=== PATIENT | female | born 1990 | race Caucasian/White ===

== ENCOUNTER 2025-02-25 22:48 | Emergency (ER) | payer OTHER ==
[~2025-02-25] VITALS: Ht 160 cm; Wt 67.0 kg
[2025-02-25 23:16] VITALS: O2SAT 96
[2025-02-26] MEDS: DIPHENHYDRAMINE 25MG CAPSULE PO ONE (01:38)
[2025-02-26] MEDS: KETOROLAC 15MG/ML VIAL IM ONE (01:38)
[2025-02-26] MEDS: METOCLOPRAMIDE HCL 10MG TABLET PO ONE (01:38)
[2025-02-26] MEDS ORDERED: NAPR-1176 MT (02:10)
[2025-02-26 02:20] VITALS: BP 110/77; PULSE 60; RESP 14; TEMP 36.5; O2SAT 100
== END 2025-02-26 02:25 | disposition home or self-care (01) ==
LOC: ER 22:48
DX: S06.9X9A Unspecified intracranial injury with loss of consciousness of unspecified duration, initial encounter (principal); Z98.890 Other specified postprocedural states; W22.8XXA Striking against or struck by other objects, initial encounter; Y93.89 Activity, other specified; Y92.89 Other specified places as the place of occurrence of the external cause; Y99.8 Other external cause status
CPT/HCPCS: 99283; 81025; 96372; J1885; Q0163; J8597